=== PATIENT | male | born 1940 | race Caucasian/White ===

== ENCOUNTER 2020-10-06 07:41 | Day surgery (SDC) | payer OTHER ==
[2020-10-03 16:20] LABS: Absolute Lymphocytes (CBC) 1.9 K/uL (0.7-4.9); Basophils % 0.8 % (0-1.3); Lymphocytes % 24.9 % (15.3-44.8); MPV 8.6 fL (7.6-11.3)
[2020-10-03 16:22] LABS: Protime INR 1.21
[2020-10-03 16:26] LABS: Potassium 4.6 mmol/L (3.5-5.1)
--- NOTE | 2020-10-03 16:47 | RAD REPORT ---
EXAM DESCRIPTION: RAD - Chest Pa And Lat (2 Views) - 10/03/2020 4:24 pm CLINICAL HISTORY: left heart cath, preoperative examination COMPARISON: Two view chest October 2015 TECHNIQUE: Frontal and lateral views of the chest were obtained. FINDINGS: The lungs are clear of a focal mass or infiltrate. Chronic interstitial lung pattern matc hes comparison. Heart size is normal and central vasculature is within normal limits. No pleural eff usion or pneumothorax seen. No acute bony finding noted. No aortic abnormality. IMPRESSION: No acute cardiopulmonary process. No significant change from comparison study.
[2020-10-06] MEDS ORDERED: ATROPINE SULF 1 MG/10 ML SYR IV ONE (08:20)
[2020-10-06] MEDS ORDERED: MIDAZOLAM HCL 2 MG/2 ML INJ ONE (08:20)
[2020-10-06] MEDS ORDERED: FENTANYL CITR 100 MCG/2 ML ONE (08:20)
[2020-10-06] MEDS ORDERED: NA CHLORIDE 0.9% 0 ML ONE (08:20)
[2020-10-06] MEDS ORDERED: HEPA 1000U/500MLS 1,000 UNIT/500 ML BAG IV ONE (08:30)
[2020-10-06 09:12] VITALS: TEMP 96.7
[2020-10-06 10:46] VITALS: BP 132/66; O2SAT 100
--- NOTE | 2020-10-06 19:59 | OP ---
Date of Procedure: 10/06/2020 Surgeon: Edgar Caldwell MD Printed Circuit Board Panels Developer: Sherly Xie. Procedure: Left heart catheterization, selective coronary arteriogram. Indication: Abnormal stress test. Description Of Procedure: Mr. 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 A 6-Serbian sheath introduced in the right common femoral artery using the Seldinger technique and 10 cc of Xylocaine. A JL4 catheter and JR4 catheter were used to cannulate the left main and right main respectively. He had a normal left main and normal circumflex, had about a 20% to 30% proximal to mid LAD stenosis. RCA was normal. He was right dominant. The patient tolerated the procedure we ll. There were no complications. Blood Loss: 5 cc. Total Conscious Sedation: 45 minutes. Postoperative Diagnosis: Abnormal stress test, mild coronary artery disease. Plan: Plan is for medical therapy. The patient can go home today after 2 hours of bedrest. He had an Angio-Seal used to close the case. I will see him in the office in next 2 weeks. Continue present regimen. SARAH/YVETTE Voice ID: [id number] Report ID: [id number]
== END 2020-10-06 11:00 | disposition home or self-care (01) ==
LOC: CCL 07:41
DX: I25.10 Atherosclerotic heart disease of native coronary artery without angina pectoris (principal); E78.5 Hyperlipidemia, unspecified; Z20.822 Contact with and (suspected) exposure to COVID-19
CPT/HCPCS: 85025; 80048; 36415; 85610; 85730; 71046; 93454; U0003; C1893; C1760; J2250; J3010; J1644; J0583

== ENCOUNTER 2024-07-22 19:19 | Inpatient (IN) | payer OTHER ==
--- NOTE | 2024-07-22 20:04 | RAD REPORT ---
EXAMINATION: CT HEAD WITHOUT CONTRAST CT CERVICAL SPINE WITHOUT CONTRAST CLINICAL INDICATION: Male, 83 years old. fall and head injury TECHNIQUE: Axial CT images from the skull base to the vertex without intravenous contrast. Axial CT i mages through the cervical spine were obtained without intravenous contrast. Sagittal and coronal reformatted images were created from the data set. Coronal and sagittal reformatted images were creat ed from the data set. One or more of the following dose reduction techniques were used: Automated exposure control, adjustment of the mA and/or kV according to patient size, and/or iterative reconstr uction. Unless otherwise specified, incidental findings do not require dedicated imaging follow-up. [id number]. COMPARISON: No prior exam. FINDINGS: Head: INTRACRANIAL: No acute intracranial hemorrhage. Ventriculomegaly out of proportion to the degree of c erebral atrophy Patchy areas of white matter hypoattenuation in the right basal ganglia. There is either a dilated perivascular space or remote right basal ganglia/subinsular infarct. Mild to moderat e bilateral chronic small vessel ischemic changes. VASCULATURE: No visualized abnormalities in the arteries or dural venous sinuses. SCALP/SKULL: No significant soft tissue or osseous abnormalities. SINUSES: The visualized paranasal sinuses and mastoid air cells are predominantly clear. Cervical spine: ALIGNMENT: Loss of the normal cervical lordosis. BONE: Vertebral body heights are maintained. No aggressive osseous lesions. DEGENERATIVE CHANGES: Multilevel cervical spondylosis with varying degrees of neural foraminal narrow ing. Neural foraminal narrowing ranges from moderate to severe bilaterally at C3-4, C4-5, C5-6, and C6-7. SOFT TISSUE: No significant abnormalities in the soft tissue of the neck. The visualized lung apices are clear. IMPRESSION: 1. No acute intracranial hemorrhage or skull fracture. Ventriculomegaly out of proportion to the degr ee of cerebral atrophy. Normal pressure hydrocephalus is a consideration in the appropriate clinical setting. In addition, age-indeterminate right basal ganglia lacunar infarcts. 2. No acute fracture or traumatic malalignment of the cervical spine.
[2024-07-22 21:11] LABS: Absolute Basophils 0.1 K/uL (0-0.5); Absolute Eosinophils 0.1 K/uL (0-0.5); Absolute Lymphocytes (CBC) 1.3 K/uL (0.7-4.9); Absolute Neutrophil 8.8 K/uL (1.8-8.0); Basophils % 1.1 % (0-1.3); Eosinophils % 0.5 % (0-4.4); Hemoglobin 13.2 g/dL (13.6-17.9); MCHC 33.1 g/dL (32.0-36.0); MCV 90.8 fL (80-100); MPV 7.7 fL (7.6-11.3); Monocytes % 8.5 % (3.3-12.3); Neutrophils % 77.9 % (41.7-73.7); Nucleated Red Blood Cells % 0.1 % (0-0); Platelets 299 thou/uL (152-406); Red Cell Distribution Width 13.9 % (12.1-15.2)
[2024-07-22 21:26] LABS: Protime INR 1.43
[2024-07-22 21:39] LABS: ALT/SGPT 15 U/L (16-61); AST/SGOT 17 U/L (15-37); Albumin/Globulin Ratio 0.8 (1.1-1.8); Alkaline Phosphatase 131 U/L (45-117); Anion Gap 4.9 mEq/L (5.0-15.0); BUN Blood Urea Nitrogen 34 mg/dL (7-18); Bicarbonate 29 mEq/L (21-32); Bilirubin Total 0.3 mg/dL (0.2-1.0); Glomerular Filtration Rate 58 ml/min (=/>90); Glucose Level 96 mg/dL (74-106); Magnesium 2.1 mg/dL (1.6-2.4); NT PRO-BNP 389 pg/mL (<450); Potassium 3.9 mEq/L (3.5-5.1); Sodium Level 143 mEq/L (136-145); Troponin High Sensitivity 19.9 pg/mL (<58.9)
[2024-07-22 21:41] LABS: Bilirubin Direct < 0.2 mg/dL (0-0.2); Bilirubin Indirect, Calculated 0.1 mg/dL (0.2-0.8)
--- NOTE | 2024-07-22 21:43 | EDPHYS ---
Physician Documentation [facility] Name: Pierre Laughlin Age: 83 yrs Sex: Male : 1940 Arrival Date: 07/22/2024 Time: 19:19 Bed 5 Private MD: ED Physician Aurelio Eli HPI: 07/22 19:22 This 83 yrs old Male presents to ER via Unassigned with complaints of Closed sp4 Head Injury-Adult. 22:14 Patient is a very pleasant 83-year-old male who is patient of Dr. Kaiser who has sp4 presented with acute fall at home associated with multiple frequent falls at home. Patient's states that patient's gait has been deteriorating lately he has difficult time ambulating and this is contributing to multiple falls at home. Patient specifically fell and hit the back of his head on the concrete today outside of his house. . Historical: - Allergies: 19:23 No Known Allergies; ss - PMHx: 19:23 Alzheimers; ss - Immunization history:: Adult Immunizations unknown. - Infectious Disease History:: Denies. - Social history:: Smoking status: Patient denies any tobacco usage or history of. - Family history:: not pertinent. ROS: 22:14 Constitutional: Negative for fever, chills, and weight loss, positive for acute fall at sp4 home, positive for multiple falls, positive for acute head injury positive for poor coordination 22:14 All other systems are negative, Exam: 21:43 ECG was reviewed by the Attending Physician. EKG 2106 normal sinus rhythm, left sp4 ventricular hypertrophy. 22:14 Constitutional: This is a well developed, well nourished patient who is awake, alert, sp4 and in no acute distress. Head/Face: Normocephalic, atraumatic. Eyes: Pupils equal round and reactive to light, extra-ocular motions intact. Lids and lashes normal. Conjunctiva and sclera are not injected. Cornea within normal limits. Periorbital areas with no swelling, redness, or edema. ENT: Nares patent. No nasal discharge, no septal abnormalities noted. Tympanic membranes are normal and external auditory canals are clear. Oropharynx with no redness, swelling, or masses, exudates, or evidence of obstruction, uvula midline. Mucous membranes moist. Neck: Trachea midline, no thyromegaly or masses palpated, and no cervical lymphadenopathy. Supple, full range of motion without nuchal rigidity, or vertebral point tenderness. Chest/axilla: Normal chest wall appearance and motion. Nontender with no deformity. No lesions are appreciated. Cardiovascular: Regular rate and rhythm with a normal S1 and S2. No gallops, murmurs, or rubs. Normal PMI, no JVD. No pulse deficits. Respiratory: Lungs have equal breath sounds bilaterally, clear to auscultation and percussion. No rales, rhonchi or wheezes noted. No increased work of breathing, no retractions or nasal flaring. Abdomen/GI: Soft, with normal bowel sounds. No distension or tympany. No guarding or rebound. No evidence of tenderness throughout. Back: No spinal tenderness. No costovertebral tenderness. Skin: Warm, dry with normal turgor. Normal color with no rashes, no lesions, and no evidence of cellulitis. MS/ Extremity: Pulses equal, no cyanosis. Neurovascular intact. Full, normal range of motion. Neuro: Awake and alert, GCS 15, oriented to person, place, time, and situation. Cranial nerves II-XII grossly intact. Motor strength 5/5 in all extremities. Sensory grossly intact. Psych: Awake, alert, with orientation to person, place and time. Behavior, mood, and affect are within normal limits Vital Signs: 19:21 BP 148 / 78; Pulse 63; Resp 14; Temp 97.6(TE); Pulse Ox 97% on R/A; Weight 81.65 kg; Height 5 ft. 9 in. ; Pain 2/10; 21:00 BP 155 / 76; Pulse 62; Resp 18; Temp 97.6; Pulse Ox 97% ; Pain 2/10; bm8 23:00 BP 151 / 74; Pulse 64; Resp 17; Temp 97.9; Pulse Ox 98% ; Pain 0/10; bm8 07/23 00:46 BP 159 / 74; Pulse 58; Resp 16; Temp 97.8; Pulse Ox 98% ; Pain 0/10; bm8 07/22 19:21 Body Mass Index 26.58 (81.65 kg, 175.26 cm) 07/22 19:21 Pain Scale: Adult 21:00 Pain Scale: Adult bm8 23:00 Pain Scale: Adult bm8 07/23 00:46 Pain Scale: Adult bm8 NIH Stroke Scale Scores: 07/22 22:14 NIHSS Score: 0 sp4 Chastity Coma Score: 19:21 Eye Response: spontaneous(4). Motor Response: obeys commands(6). Verbal Response: ss oriented(5). Total: 15. 21:00 Eye Response: spontaneous(4). Motor Response: obeys commands(6). Verbal Response: bm8 oriented(5). Total: 15. 21:43 Eye Response: spontaneous(4). Motor Response: obeys commands(6). Verbal Response: sp4 oriented(5). Total: 15. 22:17 Eye Response: spontaneous(4). Motor Response: obeys commands(6). Verbal Response: sp4 oriented(5). Total: 15. 23:00 Eye Response: spontaneous(4). Motor Response: obeys commands(6). Verbal Response: bm8 oriented(5). Total: 15. 07/23 00:46 Eye Response: spontaneous(4). Motor Response: obeys commands(6). Verbal Response: bm8 oriented(5). Total: 15. MDM: 07/22 20:19 ED course: EXAMINATION: CT HEAD WITHOUT CONTRAST CT CERVICAL SPINE WITHOUT CONTRAST sp4 CLINICAL INDICATION: Male, 83 years old. fall and head injury TECHNIQUE: Axial CT images from the skull base to the vertex without intravenous contrast. Axial CT images through the cervical spine were obtained without intravenous contrast. Sagittal and coronal reformatted images were created from the data set. Coronal and sagittal reformatted images were created from the data set. One or more of the following dose reduction techniques were used: Automated exposure control, adjustment of the mA and/or kV according to patient size, and/or iterative reconstruction. Unless otherwise specified, incidental findings do not require dedicated imaging follow-up. [id number]. COMPARISON: No prior exam. FINDINGS: Head: INTRACRANIAL: No acute intracranial hemorrhage. Ventriculomegaly out of proportion to the degree of cerebral atrophy Patchy areas of white matter hypoattenuation in the right basal ganglia. There is either a dilated perivascular space or remote right basal ganglia/subinsular infarct. Mild to moderate bilateral chronic small vessel ischemic changes. VASCULATURE: No visualized abnormalities in the arteries or dural venous sinuses. SCALP/SKULL: No significant soft tissue or osseous abnormalities. SINUSES: The visualized paranasal sinuses and mastoid air cells are predominantly clear. Cervical spine: ALIGNMENT: Loss of the normal cervical lordosis. BONE: Vertebral body heights are maintained. No aggressive osseous lesions. DEGENERATIVE CHANGES: Multilevel cervical spondylosis with varying degrees of neural foraminal narrowing. Neural foraminal narrowing ranges from moderate to severe bilaterally at C3-4, C4-5, C5- 6, and C6-7. SOFT TISSUE: No significant abnormalities in the soft tissue of the neck. The visualized lung apices are clear. IMPRESSION: 1. No acute intracranial hemorrhage or skull fracture. Ventriculomegaly out of proportion to the degree of cerebral atrophy. Normal pressure hydrocephalus is a consideration in the appropriate clinical setting. In addition, age-indeterminate right basal ganglia lacunar infarcts. 2. No acute fracture or traumatic malalignment of the cervical spine. . 20:27 ED course: CT - IMPRESSION: 1. No acute intracranial hemorrhage or skull fracture. sp4 Ventriculomegaly out of proportion to the degree of cerebral atrophy. Normal pressure hydrocephalus is a consideration in the appropriate clinical setting. In addition, age-indeterminate right basal ganglia lacunar infarcts. 2. No acute fracture or traumatic malalignment of the cervical spine. . 21:35 Medical Screening Exam initiated sp4 22:14 ED course: EXAM: Chest Single View HISTORY: gen weakness COMPARISON: None. FINDINGS: sp4 LUNGS/PLEURA: The lungs are clear. No pleural effusions or pneumothorax. No pulmonary edema. MEDIASTINUM: The mediastinal silhouette is within normal limits. CARDIAC: The cardiac silhouette is within normal limits. UPPER ABDOMEN: No significant abnormality. BONES: No acute abnormality. LINES/TUBES/OTHER: N/A IMPRESSION: No evidence of acute cardiopulmonary disease. . 22:17 Differential diagnosis: Contusion of Hematoma on cerebral contusion. Differential sp4 diagnosis: Laceration of Concussion. Data reviewed: vital signs, nurses notes. 22:31 Differential diagnosis: Intracranial bleed- subdural. Consideration of sp4 Admission/Observation Patient was admitted/placed on observation. Escalation of care including admission/observation considered. Management of patient was discussed with the following: Hospitalist: Emily VILLARREAL . Plastics Factory Worker: Louann VILLARREAL . ED course: Patient was discussed with Dr. Lew and we will go ahead and admit patient for evaluation of ventriculomegaly possible normal pressure hydrocephalus. Dr. Lew states he will proceed with MRI in the AM. 07/23 00:34 ED course: COMPARISON: None. TECHNIQUE: CT of the thoracic and lumbar spine was sp4 performed without contrast. Axial, sagittal, and coronal reconstructions were created and sent to PACS. This exam was performed according to our departmental dose-optimization program which includes use of Automated Exposure Control, adjustment of the mA and/or kV according to patient size and/or use of iterative reconstruction technique. FINDINGS: No acute osseous abnormality identified. Chronic mild humeral body height loss of the T12 vertebral body with no bony retropulsion. Degenerative sclerosis along the anterior endplates at T6-7. Schmorl's node along the inferior endplates of the L2 and L3 vertebral bodies. Vertebral body alignment is maintained. No significant central canal or neuroforaminal narrowing throughout the thoracic spine. Degenerative changes in the lumbar spine, with mild central canal and neuroforaminal narrowing at L3-4 and L4-5. 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 Demineralized appearance of the bones. Paraspinal soft tissues: No significant abnormality is visualized. IMPRESSION: 1. No acute osseous abnormality identified in the thoracic or lumbar spine. 2. Demineralized appearance of the bones. Chronic mild T12 compression deformity. 3. Mild disc degeneration in the lumbar spine, with mild central canal and neuroforaminal narrowing at L3-4 and L4-5. 4. MRI is more sensitive for soft tissue evaluation and can be obtained if necessary. . 07/22 20:42 Order name: Basic Metabolic Panel; Complete Time: 22:12 sp4 07/22 20:42 Order name: CBC with Diff; Complete Time: 21:34 sp4 07/22 20:42 Order name: LFT's; Complete Time: 22:12 sp4 07/22 20:42 Order name: Magnesium; Complete Time: 22:12 sp4 07/22 20:42 Order name: NT PRO-BNP; Complete Time: 22:12 sp4 07/22 20:42 Order name: PT-INR; Complete Time: 21:34 sp4 07/22 20:42 Order name: Troponin HS; Complete Time: 22:12 sp4 07/22 20:43 Order name: Urinalysis W/Microscopic; Complete Time: 00:31 sp4 07/22 21:07 Order name: C-Reactive Protein; Complete Time: 22:12 EDMS 07/22 21:07 Order name: T4 Free; Complete Time: 22:12 EDMS 07/22 21:07 Order name: Thyroid Stimulating Hormone; Complete Time: 22:12 EDMS 07/22 22:43 Order name: Lactate w/ 2H reflex if indic.; Complete Time: 08:33 EDMS 07/22 22:43 Order name: Magnesium; Complete Time: 08:33 EDMS 07/22 22:43 Order name: Phosphorus; Complete Time: 08:33 EDMS 07/22 22:43 Order name: Urinalysis w/ reflexes EDMS 07/22 22:43 Order name: Basic Metabolic Panel EDMS 07/22 22:43 Order name: Basic Metabolic Panel; Complete Time: 08:33 EDMS 07/22 22:43 Order name: CBC with Automated Diff EDMS 07/22 22:43 Order name: CBC with Automated Diff; Complete Time: 08:33 EDMS 07/23 08:19 Order name: Glucose, Ancillary Testing; Complete Time: 08:33 EDMS 07/23 12:18 Order name: Glucose, Ancillary Testing EDMS 07/22 19:22 Order name: CT Head C Spine; Complete Time: 21:34 sp4 07/22 20:42 Order name: XRAY Chest (1 view); Complete Time: 22:12 sp4 07/22 20:42 Order name: Pelvis XRAY; Complete Time: 22:12 sp4 07/22 22:19 Order name: CT Thoracic Spine Wo Cont sp4 07/22 22:19 Order name: CT Lumbar Spine Wo Con sp4 07/23 15:33 Order name: MRI EDMS 07/22 20:42 Order name: Cardiac monitoring; Complete Time: 21:13 sp4 07/22 20:42 Order name: EKG - Nurse/Tech; Complete Time: 21:13 sp4 07/22 20:42 Order name: IV Saline Lock; Complete Time: 21:13 sp4 07/22 20:42 Order name: Labs collected and sent; Complete Time: 21:13 sp4 07/22 20:42 Order name: O2 Per Protocol; Complete Time: 21:40 sp4 07/22 20:42 Order name: O2 Sat Monitoring; Complete Time: 21:40 sp4 EC/02 21:06 Rate is 64 beats/min. Rhythm is regular, Normal Sinus Rhythm. QRS [place] is Normal. [place] sp4 interval is normal. QRS interval is normal. QT interval is normal. No Q waves. T waves are Inverted in leads V4, V5, V6. No ST changes noted. Clinical impression: No evidence of ischemia. Interpreted by me. Reviewed by me. Administered Medications: No medications were administered Disposition Summary: 07/22/24 21:42 Hospitalization Ordered Notes: Hospitalization Status: Inpatient Admission sp4 Provider: Prince blas Diaz Condition: Stable sp4 Problem: new sp4 Symptoms: are unchanged sp4 Bed/Room Type: Standard sp4 Location: Telemetry/MedSurg (Inpatient)(07/23/24 14:55) ll1 Room Assignment: [facility](07/23/24 15:32) [facility] Diagnosis - Ventriculomegaly, Frequent Falls, Generalized weakness, Acute fall at home, sp4 Closed Head Injury, Impaired Coordination Forms: - Medication Reconciliation Form sp4 - SBAR form sp4 - Leadership Thank You Letter sp4 NIH Stroke Scale - NIH Stroke Score Date: 07/22/2024 Time: 22:14 Total Score = 0 10. Dysarthria (speech clarity - read or repeat words) - 0(Normal) 11. Extinction and Inattention (visual/tactile/auditory/spatial/personal) - 0(No abnormality) 1a. Level of Consciousness (LOC) - 0(Alert) 1b. Level of Consciousness (LOC) (Month \T\ Age) - 0(Both) 1c. LOC Commands (Open \T\ Closes Eyes/Real Estate Administrative Assistant) - 0(Both) 2. Best Gaze (Lateral Gaze Paresis) - 0(Normal) 3. Visual Field Loss - 0(No visual loss) 4. Facial Palsy - 0(Normal) 5a. Left Arm: Motor (10-second hold) - 0(No drift) 5b. Right Arm: Motor (10-second hold) - 0(No drift) 6a. Left Leg: Motor (5-second hold - always test supine) - 0(No drift) 6b. Right Leg: Motor (5-second hold - always test supine) - 0(No drift) 7. Limb Ataxia (finger/nose \T\ heel/gatica - test with eyes open) - 0(Absent) 8. Sensory Loss (pinprick arms/legs/face) - 0(Normal) 9. Best Language: Aphasia (description/naming/reading) - 0(No aphasia) Initials: sp4 Signatures: Dispatcher [employer] EDMS Angelica Sauceda, RN RN ss Kiran Meehan, SPOON MAKER-C SPOON MAKER-Cla1 Satya Sykes RN RN ll1 Aurelio Eli MD MD sp4 Humza Winter, RN RN bm8 Corrections: (The following items were deleted from the chart) 19:23 19:23 Head C Spine MPR Wo Con+CT.RAD.BRZ ordered. EDMS EDMS 20:42 20:42 BASIC METABOLIC PANEL+C.LAB.BRZ ordered. EDMS EDMS 20:42 20:42 CBC+H.LAB.BRZ ordered. EDMS EDMS 20:42 20:42 HEPATIC FUNCTION+C.LAB.BRZ ordered. EDMS EDMS 20:42 20:42 MAGNESIUM+C.LAB.BRZ ordered. EDMS EDMS 20:42 20:42 PROBNP+C.LAB.BRZ ordered. EDMS EDMS 20:42 20:42 PROTIME (+INR)+COAG.LAB.BRZ ordered. EDMS EDMS 20:42 20:42 Troponin High Sensitivity+C.LAB.BRZ ordered. EDMS EDMS 20:42 20:42 Chest Single View+RAD.RAD.BRZ ordered. EDMS EDMS 21:07 20:45 THYROID STIMULAT HORMONE+C.LAB.BRZ ordered. EDMS EDMS 21:07 20:45 T4 FREE+C.LAB.BRZ ordered. EDMS EDMS 21:07 20:45 C-REACTIVE PROTEIN+C.LAB.BRZ ordered. EDMS EDMS 22:46 22:19 C Spine Wo Con+CT.RAD.BRZ ordered. EDMS EDMS 23:21 21:42 Telemetry/MedSurg (Inpatient) sp4 ss 23:21 21:42 sp4 07/23 14:55 07/22 23:21 BR ER HOLD ll1 07/23 14:55 07/22 23:21 [facility] ll1 07/23 15:32 14:[address] [place], [place] [id number]
--- NOTE | 2024-07-22 21:43 | ER ---
Nurse's Notes [facility] Name: Pierre Laughlin Age: 83 yrs Sex: Male : 1940 Arrival Date: 07/22/2024 Time: 19:19 Bed 5 Private MD: Diagnosis: Ventriculomegaly, Frequent Falls, Generalized weakness, Acute fall at home, Closed Head Injury, Impaired Coordination Presentation: 07/22 19:21 Chief complaint: EMS states: fell from standing onto concrete. Pt reports he hit the back of his head. Pain is reportedly 2/10. No obvious injury noted. Coronavirus screen: Client denies travel out of the [place] in the last 14 days. Ebola Screen: Patient denies exposure to infectious person. Patient denies travel to an Ebola-affected area in the 21 days before illness onset. Mechanism of Injury: resulted from a fall, from a standing position. Risk considerations:. Initial Sepsis Screen: Does the patient meet any 2 criteria? No. Patient's initial sepsis screen is negative. Does the patient have a suspected source of infection? No. Patient's initial sepsis screen is negative. Risk Assessment: Do you want to hurt yourself or someone else? Patient reports no desire to harm self or others. 19:21 Method Of Arrival: EMS: [facility] 19:21 Acuity: CARLEY 3 ss 19:21 Onset of symptoms is unknown. bm8 19:26 Care prior to arrival: Glucose check: 88. ss Triage Assessment: 19:21 General: Appears in no apparent distress. comfortable. General: Behavior is calm, bm8 cooperative, appropriate for age. Pain: Complains of pain in scalp. Neuro: No deficits noted. Level of Consciousness is awake, alert, obeys commands, Oriented to person, place, time, situation, Appropriate for age Reports headache occipital area. Historical: - Allergies: 19:23 No Known Allergies; ss - PMHx: 19:23 Alzheimers; ss - Immunization history:: Adult Immunizations unknown. - Infectious Disease History:: Denies. - Social history:: Smoking status: Patient denies any tobacco usage or history of. - Family history:: not pertinent. Screenin:24 Abuse screen: Denies threats or abuse. Denies injuries from another. Nutritional ss screening: No deficits noted. Tuberculosis screening: Never had TB. 07/23 00:46 [facility] ED Fall Risk Assessment (Adult) History of falling in the last 3 months, bm8 including since admission Yes- fall prone (multiple falls) (3 pts) Confusion or Disorientation No (0 pts) Intoxicated or Sedated No (0 pts) Impaired Gait Yes (1 pt) Mobility Assist Device Used No (0 pt) Altered Elimination No (0 pt) Score/Fall Risk Level 3 or more points = High Risk Oriented to surroundings, Maintained a safe environment, Educated pt \T\ family on fall prevention, incl call for assistance when getting out of bed, Assessed \T\ reinforced patient's understanding of fall precautions, Hourly rounding (assess needs \T\ fall precautionary measures) done, Used ambulatory aids as needed (educated on \T\ assisted with), Used gait belt as appropriate Implemented a Fall Risk Plan of Care. Assessment: 07/22 19:24 General: Appears in no apparent distress. comfortable, Behavior is calm, cooperative, ss Denies fever, feeling ill. Pain: Complains of pain in Back of head Pain currently is 2 out of 10 on a pain scale. Quality of pain is described as aching, tender, Is continuous. Neuro: Level of Consciousness is awake, alert, obeys commands, Oriented to person, place, time, situation, Sheet Catcher are equal bilaterally Moves all extremities. Full function Gait is steady, Speech is normal, Facial symmetry appears normal, Pupils are PERRLA, Denies blurred vision dizziness. Respiratory: Airway is patent Respiratory effort is even, unlabored, Respiratory pattern is regular, symmetrical. GI: Patient currently denies diarrhea, nausea, vomiting. EENT: Oral mucosa is moist. Derm: Skin is intact, is healthy with good turgor, Skin is pink, warm \T\ dry. normal. 19:39 Reassessment: Additional warm blankets given per request. Pt to CT at this time VIA ss stretcher. 2 family members remain in room. 21:00 Reassessment: Patient appears in no apparent distress at this time. Patient and/or bm8 family updated on plan of care and expected duration. Pain level reassessed. Patient is alert, oriented x 3, equal unlabored respirations, skin warm/dry/pink. Patient denies pain at this time. 23:00 Reassessment: Patient appears in no apparent distress at this time. No changes from bm8 previously documented assessment. Patient and/or family updated on plan of care and expected duration. Pain level reassessed. Patient is alert, oriented x 3, equal unlabored respirations, skin warm/dry/pink. Patient denies pain at this time. Patient states symptoms have improved. 07/23 00:46 General: Appears in no apparent distress. comfortable, obese, well groomed, well bm8 developed, well nourished, Behavior is calm, cooperative, appropriate for age. Pain: Denies pain. Neuro: Level of Consciousness is awake, alert, obeys commands, Oriented to person, place, time, situation, Appropriate for age Sheet Catcher are equal bilaterally Moves all extremities. Full function Gait is shuffling, Facial symmetry appears normal. Cardiovascular: No deficits noted. Denies chest pain, Capillary refill < 3 seconds in bilateral fingers Patient's skin is warm and dry. Respiratory: Airway is patent Respiratory effort is even, unlabored, Respiratory pattern is regular, symmetrical. GI: No signs and/or symptoms were reported involving the gastrointestinal system. : No signs and/or symptoms were reported regarding the genitourinary system. Musculoskeletal: No signs and/or symptoms reported regarding the musculoskeletal system. Reports weakness in generalized weakness. Vital Signs: 07/22 19:21 BP 148 / 78; Pulse 63; Resp 14; Temp 97.6(TE); Pulse Ox 97% on R/A; Weight 81.65 kg; ss Height 5 ft. 9 in. ; Pain 2/10; 21:00 BP 155 / 76; Pulse 62; Resp 18; Temp 97.6; Pulse Ox 97% ; Pain 2/10; bm8 23:00 BP 151 / 74; Pulse 64; Resp 17; Temp 97.9; Pulse Ox 98% ; Pain 0/10; bm8 07/23 00:46 BP 159 / 74; Pulse 58; Resp 16; Temp 97.8; Pulse Ox 98% ; Pain 0/10; bm8 07/22 19:21 Body Mass Index 26.58 (81.65 kg, 175.26 cm) ss 07/22 19:21 Pain Scale: Adult ss 21:00 Pain Scale: Adult bm8 23:00 Pain Scale: Adult bm8 07/23 00:46 Pain Scale: Adult bm8 [place] Coma Score: 07/22 19:21 Eye Response: spontaneous(4). Motor Response: obeys commands(6). Verbal Response: ss oriented(5). Total: 15. 21:00 Eye Response: spontaneous(4). Motor Response: obeys commands(6). Verbal Response: bm8 oriented(5). Total: 15. 21:43 Eye Response: spontaneous(4). Motor Response: obeys commands(6). Verbal Response: sp4 oriented(5). Total: 15. 22:17 Eye Response: spontaneous(4). Motor Response: obeys commands(6). Verbal Response: sp4 oriented(5). Total: 15. 23:00 Eye Response: spontaneous(4). Motor Response: obeys commands(6). Verbal Response: bm8 oriented(5). Total: 15. 07/23 00:46 Eye Response: spontaneous(4). Motor Response: obeys commands(6). Verbal Response: bm8 oriented(5). Total: 15. NIH Stroke Scale Scores: 07/22 22:14 NIHSS Score: 0 sp4 ED Course: 19:21 Patient arrived in ED. ss 19:22 Aurelio Eli MD is Attending Physician. sp4 19:23 Triage completed. ss 19:23 Arm band placed on right wrist. ss 19:24 Patient has correct armband on for positive identification. Placed in gown. Bed in low ss position. Call light in reach. Side rails up X2. Pulse ox on. NIBP on. Warm blanket given. 19:44 CT Head C Spine In Process Unspecified. EDMS 21:12 Inserted saline lock: 22 gauge in right antecubital area, using aseptic technique. oe Blood collected. Flushed with 10 mL NS. 21:13 Basic Metabolic Panel Sent. oe 21:13 LFT's Sent. oe 21:13 Magnesium Sent. oe 21:13 NT PRO-BNP Sent. oe 21:13 PT-INR Sent. oe 21:13 Troponin HS Sent. oe 21:13 T4 Free Sent. oe 21:13 Thyroid Stimulating Hormone Sent. oe 21:14 C-Reactive Protein Sent. oe 21:40 MOON AMBRIZ, RN is Primary Nurse. dd2 21:40 Prince Diaz MD is Hospitalizing Provider. sp4 21:49 XRAY Chest (1 view) In Process Unspecified. EDMS 21:49 Pelvis XRAY In Process Unspecified. EDMS 22:39 Urinalysis W/Microscopic Sent. oe 22:46 CT Thoracic Spine Wo Cont In Process Unspecified. EDMS 22:46 CT Lumbar Spine Wo Con In Process Unspecified. EDMS 02/03 00:46 Provided Education on: need for admission. bm8 00:46 No provider procedures requiring assistance completed. Patient admitted, IV remains in bm8 place. Administered Medications: No medications were administered Medication: 07/22 19:24 VIS not applicable for this client. ss Outcome: 21:42 Decision to Hospitalize by Provider. sp4 07/23 00:46 Admitted to ER Hold. [facility]. bm8 Condition: stable Instructed on the need for admit, Demonstrated understanding of follow-up care, medications, 16:35 Patient left the ED. ko1 NIH Stroke Scale - NIH Stroke Score Date: 07/22/2024 Time: 22:14 Total Score = 0 10. Dysarthria (speech clarity - read or repeat words) - 0(Normal) 11. Extinction and Inattention (visual/tactile/auditory/spatial/personal) - 0(No abnormality) 1a. Level of Consciousness (LOC) - 0(Alert) 1b. Level of Consciousness (LOC) (Month \T\ Age) - 0(Both) 1c. LOC Commands (Open \T\ Closes Eyes/Chief Client Officer) - 0(Both) 2. Best Gaze (Lateral Gaze Paresis) - 0(Normal) 3. Visual Field Loss - 0(No visual loss) 4. Facial Palsy - 0(Normal) 5a. Left Arm: Motor (10-second hold) - 0(No drift) 5b. Right Arm: Motor (10-second hold) - 0(No drift) 6a. Left Leg: Motor (5-second hold - always test supine) - 0(No drift) 6b. Right Leg: Motor (5-second hold - always test supine) - 0(No drift) 7. Limb Ataxia (finger/nose \T\ heel/gatica - test with eyes open) - 0(Absent) 8. Sensory Loss (pinprick arms/legs/face) - 0(Normal) 9. Best Language: Aphasia (description/naming/reading) - 0(No aphasia) Initials: sp4 Signatures: Dispatcher [employer] EDAngelica Richard RN RN ss Jemal Russ Kathy, RN RN ko1 Aurelio Eli MD MD sp4 Humza Winter, RN RN bm8 MOON AMBRIZ, RN RN dd2
--- NOTE | 2024-07-22 21:52 | RAD REPORT ---
EXAM: Chest Single View HISTORY: gen weakness COMPARISON: None. FINDINGS: LUNGS/PLEURA: The lungs are clear. No pleural effusions or pneumothorax. No pulmonary edema. MEDIASTINUM: The mediastinal silhouette is within normal limits. CARDIAC: The cardiac silhouette is within normal limits. UPPER ABDOMEN: No significant abnormality. BONES: No acute abnormality. LINES/TUBES/OTHER: N/A IMPRESSION: No evidence of acute cardiopulmonary disease.
--- NOTE | 2024-07-22 21:52 | RAD REPORT ---
EXAMINATION: Pelvis CLINICAL INDICATION: Male, 83 years old. fall COMPARISON: No prior exam. FINDINGS: No acute fracture. No malalignment/dislocation. Degenerative changes are present at the sacroiliac joints. Mild bilateral acetabular degenerative blank nges. Other: Peripheral vascular calcifications. IMPRESSION: No acute osseous abnormality.
[2024-07-22] MEDS ORDERED: ACETAMINOPHEN 500 MG TAB PO PRN (22:39)
[2024-07-22] MEDS ORDERED: ONDANSETRON 4 MG/2 ML VIAL IV PRN (22:39)
--- NOTE | 2024-07-22 22:45 | P.HP ---
Certification for Inpatient Patient admitted to: Observation With expected LOS: <2 Midnights Practitioner: I am a practitioner with admitting privileges, knowledge of patient current condition, hospital course, and medical plan of care. Services: Services provided to patient in accordance with Admission requirements found in Title 42 Section 412.3 of the Code of Federal Regulations Patient History Date of Service: 07/22/24 Reason for admission: Abnormal gait History of Present Illness: Patient is a 83-year-old male with a past medical history of Alzhei song's dementia. Presented to the ER accompanied by and neighbor for evaluation of abnormal gait. states that patient has been having shuffling gait for the past few days. Additional symptoms including worsening confusion. Denies urinary incontinence but endorses bowel incontinence. No recent fall reported. CT head in the ER revealed ventriculomegaly concerning for normal pressure hydrocephalus. The ER has contacted neurology who agrees to consult tomorrow morning. During my evaluation, patient was alert and awake. provided most of the history. Allergies No Known Allergies Allergy (Verified 01/07/16 11:50) Home Medications: Docosahexaenoic Acid [Dha Algal-900] 300 mg PO DAILY 10/23/15 Docosahexanoic AC/Epa [Fish Oil 1,000 MG CAP] 1,000 mg PO BID 10/23/15 Vitamin E Acid Succinate [Vitamin E] 400 unit PO DAILY 10/23/15 Acetylcysteine [Nac] 500 mg PO DAILY 01/07/16 Ascorbic Acid [Vitamin C] 500 mg PO DAILY 01/07/16 Beta-Carotene [Beta Carotene] 12,500 unit PO DAILY 01/07/16 Biotin 500 mcg PO DAILY 01/07/16 Calcium Cit/Mgox/Vit D3/B6/Min [Calcium Citrate Plus Tablet] 1 each PO DAILY 01/07/16 Chromium Amino Acid Chelate [Chromium] 6,000 mcg PO DAILY 01/07/16 Lutein 10 mg PO DAILY 01/07/16 Lycopene 15 mg PO EVERY 3RD DAY 01/07/16 Magnesium Oxide [Magnesium] 250 mg PO DAILY 01/07/16 Niacin [Niacin ER] 1,000 mg PO DAILY 01/07/16 Potassium 99 mg PO DAILY 01/07/16 Ubidecarenone/Vitamin E Mixed [Fmp31-Qlg E 100 mg-10 Unit Sfg] 1 each PO DAILY 01/07/16 Vitamin B Complex [B Complex] 1 each PO DAILY 01/07/16 Ciprofloxacin HCl [Cipro 500 MG Tablet] 500 mg PO BID 04/28/16 Physical Examination - Physical Exam General: Alert, In no apparent distress HEENT: Atraumatic, Normocephalic Respiratory: Clear to auscultation bilaterally, Normal air movement Cardiovascular: No edema, Normal pulses, Regular rate/rhythm, Normal S1 S2 Neurological: Normal speech, Dementia - Studies Laboratory Data (last 24 hrs) 07/22/24 07/22/24 07/22/24 20:55 20:55 20:55 WBC 11.20 H Hgb 13.2 L Hct 40.0 Plt Count 299 PT 15.0 H INR 1.43 Sodium 143 Potassium 3.9 BUN 34 H Creatinine 1.24 Glucose 96 Magnesium 2.1 Total Bilirubin 0.3 AST 17 ALT 15 L Alkaline Phosphatase 131 H Assessment and Plan - Problems (Diagnosis) (1) Ataxia Current Visit: Yes Status: Acute (2) Alzheimer dementia Current Visit: Yes Status: Acute (3) Bilateral leg weakness Current Visit: Yes Status: Acute - Plan Assessment 83-year-old male brought in for evaluation of abnormal gait, worsening memory deficits and bladder incontinence. Patient usually ambulates unassisted and independently. Lately, he has been able unable to get out of chair. Patient reports bilateral lower extremity weakness. Associated symptoms include bowel incontinence Ventriculomegaly, suspecting NPH Bilateral lower extremity weakness Bowel incontinence Alzheimer dementia Plan: Will admit under observation with telemetry CT of thoracic and lumbar spine Obtain a formal brain brain and spine MRI Neurology has been consulted. Will hold off LP pending Neuro clearance Patient will also benefit from PT/OT before discharge Normal saline infusion Check electrolytes Patient is full code - Advance Directives Does patient have a Living Will: No Does patient have a Durable POA for Healthcare: No
[2024-07-22] MEDS: NA CHLORIDE 0.9% 1,000 ML IV SCH (23:00)
[2024-07-22 23:06] LABS: Renal Epithelial <5 /HPF (None Seen); Specific Gravity 1.018 (1.005-1.030); Sqamous Epithelial None Seen /HPF (None Seen); Urine Bacteria None Seen /HPF (<20); Urine Bilirubin NEGATIVE (Negative); Urine Blood Trace (Negative); Urine Clarity Turbid (Clear); Urine Color Colorless (Yellow); Urine Culture Reflex Order NOT NEEDED; Urine Glucose NEGATIVE (Negative); Urine Ketones NEGATIVE (Negative); Urine Micro Reflex YN NO BILL MICROSCOPIC; Urine Mucus Slight /HPF (None Seen); Urine Nitrite NEGATIVE (Negative); Urine Protein NEGATIVE (Negative); Urine Urobilinogen Normal (Normal); Urine WBC <5 /HPF (<5); Urine pH 7.5 (5.0-7.0)
--- NOTE | 2024-07-22 23:16 | RAD REPORT ---
EXAM DESCRIPTION: Spine Lumbar Wo Con (accession [id number]), Thoracic Spine W/o Cont (accession [id number]). RadLex: CT LUMBAR SPINE WITHOUT IV CONTRAST, CT THORACIC SPINE WITHOUT IV CONTRAST CLINICAL HISTORY: bilateral leg weakness. COMPARISON: None. TECHNIQUE: CT of the thoracic and lumbar spine was performed without contrast. Axial, sagittal, and coronal kenneth nstructions were created and sent to PACS. This exam was performed according to our departmental dose-optimization program which includes use of Automated Exposure Control, adjustment of the mA and/or kV according to patient size and/or use of iterative reconstruction technique. FINDINGS: No acute osseous abnormality identified. Chronic mild humeral body height loss of the T12 vertebral b genesis with no bony retropulsion. Degenerative sclerosis along the anterior endplates at T6-7. Schmorl's node along the inferior endplates of the L2 and L3 vertebral bodies. Vertebral body alignme nt is maintained. No significant central canal or neuroforaminal narrowing throughout the thoracic spine. Degenerative changes in the lumbar spine, with mild central canal and neuroforaminal narrowing at L3-4 and L4-5. 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 Demineralized appearance of the bones. Paraspinal soft tissues: No significant abnormality is visualized. IMPRESSION: 1. No acute osseous abnormality identified in the thoracic or lumbar spine. 2. Demineralized appearance of the bones. Chronic mild T12 compression deformity. 3. Mild disc degeneration in the lumbar spine, with mild central canal and neuroforaminal narrowing at L3-4 and L4-5. 4. MRI is more sensitive for soft tissue evaluation and can be obtained if necessary. Electronically signed by: Mallorie Miller MD 07/22/2024 11:12 PM [facility] Due to temporary technical issues with the PACS/[employer] reporting system, reports are being mag d by the in-house radiologist without review as a courtesy to ensure prompt reporting the interpreting radiologist is fully responsible for the content of the report. Transcribed Date/Time: 07/22/2024 11:16 PM
--- NOTE | 2024-07-22 23:17 | RAD REPORT ---
EXAM DESCRIPTION: Spine Lumbar Wo Con (accession [id number]), Thoracic Spine W/o Cont (accession [id number]). RadLex: CT LUMBAR SPINE WITHOUT IV CONTRAST, CT THORACIC SPINE WITHOUT IV CONTRAST CLINICAL HISTORY: bilateral leg weakness. COMPARISON: None. TECHNIQUE: CT of the thoracic and lumbar spine was performed without contrast. Axial, sagittal, and coronal kenneth nstructions were created and sent to PACS. This exam was performed according to our departmental dose-optimization program which includes use of Automated Exposure Control, adjustment of the mA and/or kV according to patient size and/or use of iterative reconstruction technique. FINDINGS: No acute osseous abnormality identified. Chronic mild humeral body height loss of the T12 vertebral b genesis with no bony retropulsion. Degenerative sclerosis along the anterior endplates at T6-7. Schmorl's node along the inferior endplates of the L2 and L3 vertebral bodies. Vertebral body alignme nt is maintained. No significant central canal or neuroforaminal narrowing throughout the thoracic spine. Degenerative changes in the lumbar spine, with mild central canal and neuroforaminal narrowing at L3-4 and L4-5. 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 Demineralized appearance of the bones. Paraspinal soft tissues: No significant abnormality is visualized. IMPRESSION: 1. No acute osseous abnormality identified in the thoracic or lumbar spine. 2. Demineralized appearance of the bones. Chronic mild T12 compression deformity. 3. Mild disc degeneration in the lumbar spine, with mild central canal and neuroforaminal narrowing at L3-4 and L4-5. 4. MRI is more sensitive for soft tissue evaluation and can be obtained if necessary. Electronically signed by: Mallorie Miller MD 07/22/2024 11:12 PM [facility] Due to temporary technical issues with the PACS/[employer] reporting system, reports are being mag d by the in-house radiologist without review as a courtesy to ensure prompt reporting the interpreting radiologist is fully responsible for the content of the report. Transcribed Date/Time: 07/22/2024 11:17 PM
[2024-07-23] MEDS ORDERED: NA CHLORIDE 0.9% 1,000 ML ONE ×2 (01:19→10:39)
[2024-07-23 05:40] LABS: Absolute Basophils 0.1 K/uL (0-0.5); Absolute Eosinophils 0.1 K/uL (0-0.5); Absolute Lymphocytes (CBC) 1.8 K/uL (0.7-4.9); Absolute Neutrophil 6.4 K/uL (1.8-8.0); Basophils % 0.8 % (0-1.3); Eosinophils % 1.1 % (0-4.4); Hematocrit 36.6 % (39.6-49.0); Hemoglobin 12.5 g/dL (13.6-17.9); Lymphocytes % 19.6 % (15.3-44.8); MCH 30.9 pg (27.0-35.0); MCHC 34.2 g/dL (32.0-36.0); MCV 90.5 fL (80-100); MPV 7.6 fL (7.6-11.3); Monocytes % 10.3 % (3.3-12.3); Neutrophils % 68.2 % (41.7-73.7); Nucleated Red Blood Cells % 0.1 % (0-0); Platelets 263 thou/uL (152-406); RBC Red Blood Cell Count 4.04 M/uL (4.33-5.43); Red Cell Distribution Width 13.8 % (12.1-15.2)
[2024-07-23 06:02] LABS: Anion Gap 5.5 mEq/L (5.0-15.0); Potassium 3.5 mEq/L (3.5-5.1)
[2024-07-23 06:03] LABS: Magnesium 2.1 mg/dL (1.6-2.4); Phosphorus 2.8 mg/dL (2.5-4.9)
[2024-07-23] MEDS: ENOXAPARIN 40 MG/0.4 ML SQ SCH (09:00)
[2024-07-23] MEDS ORDERED: ENOXAPARIN 40 MG/0.4 ML SQ ONE (10:40)
--- NOTE | 2024-07-23 12:38 | P.PN ---
Date of Service: 07/23/24 Subjective: No acute events overnight feels about the same reports shuffling gait, falls ROS: 10 point ROS as noted above, otherwise negative Physical exam GEN: Alert, oriented, NAD HEENT: Normal conjunctiva, sclera anicteric CV: Regular rate and rhythm, no edema Pulm: Nonlabored respirations on room air ABD: Soft, nontender, nondistended MSK: No joint tenderness Integumentary: No rashes Neuro: Normal speech, normal affect, oriented but forgets words periodically/takes some time to answer appropriately on occasion Vitals reviewed Assessment Ventriculomegaly, Eval for NPH Bilateral lower extremity weakness Bowel incontinence Alzheimer dementia Plan: Ventriculomegaly, Eval for NPH Bilateral lower extremity weakness Bowel incontinence Alzheimer dementia Case discussed with neurology Obtain MRI brain with and without-pending result Obtain PT consult Await input from neurology, discussed possible high-volume LP follow-up PT evaluation to determine if there is improvement in his shuffling gait/confusion Generally he is quite oriented, occasionally stumbles over some words or takes a minute to come up with an answer Time Spent Managing Pts Care (In Minutes): 35
--- NOTE | 2024-07-23 15:33 | RAD REPORT ---
EXAM: Brain W/Wo Cont CLINICAL INDICATION: 83 years Male Eval for NPH, shuffling gain, increase confusion. TECHNIQUE: Pre-contrast sagittal and axial T1-w, and axial T2-FLAIR, GRE, and diffusion-w sequences o f the brain with ADC maps. Post-contrast axial fat-saturated T2-w and T1-w, and sagittal volumetric T1-w images of the brain with axial and coronal reformations. Intravenous contrast material was admin istered for the examination.[id number] COMPARISON: 07/22/2024 FINDINGS: INTRACRANIAL: No acute infarct identified. No significant mass effect or midline shift. Ventriculome irasema again identified which is out of proportion to the degree of cerebral atrophy. This predominantly affects the lateral ventricles and to lesser extent the third ventricle. The fourth abdullahi tricle is normal. Periventricular T-2/flair hyperintense signal is present which is more suggestive of chronic small vessel ischemic changes rather than transependymal flow of CSF. The callosal angle i s approximately 110 degrees which is normal. The Mandujano index is estimated at 0.40 which is abnormal. Cerebral atrophy is moderate and age advanced. Right basal ganglia septated structure measuring 18 mm with fluid intensity and no enhancement is mos t consistent with a dilated perivascular space. Microcystic changes in the right basal ganglia and right mora radiata also favored to be related to dilated perivascular spaces. No solid enhancement. VASCULATURE: Normal signal voids in the larger intracranial arteries and dural venous sinuses. SINUSES: No significant paranasal sinus thickening.No mastoid effusions. BONE: The marrow signal pattern is within normal limits. IMPRESSION: No acute intracranial abnormality. No acute infarct. Ventriculomegaly out of proportion to the degree of cerebral atrophy. No specific imaging features on this exam to either confirm or exclude normal pressure hydrocephalus. Could consider neurology consultation and/or referral. CSF attenuation structures in the right basal ganglia and mora radiata favored to represent dilated perivascular spaces. No abnormal enhancement.
[2024-07-24 06:54] LABS: Hematocrit 36.4 % (39.6-49.0); Hemoglobin 12.1 g/dL (13.6-17.9); MCH 30.3 pg (27.0-35.0); MCHC 33.2 g/dL (32.0-36.0); MCV 91.2 fL (80-100); MPV 7.9 fL (7.6-11.3); Platelets 264 thou/uL (152-406); RBC Red Blood Cell Count 3.99 M/uL (4.33-5.43); Red Cell Distribution Width 13.9 % (12.1-15.2)
[2024-07-24 07:16] LABS: Anion Gap 3.7 mEq/L (5.0-15.0); Potassium 3.7 mEq/L (3.5-5.1)
[2024-07-24] MEDS: POTASSIUM 25 MEQ EFFERV TAB PO ONE (07:42)
--- NOTE | 2024-07-24 12:16 | EKG ---
Test Date: 2024-07-22 Test Time: 21:06:01 Nuclear Equipment Test Engineer: DEDE MEASUREMENT RESULTS: Intervals: Rate: 64 CT: 130 QRSD: 88 QT: 436 QTc: 449 [place]: P: 71 CT: 130 QRS: 62 T: 187 INTERPRETIVE STATEMENTS: Normal sinus rhythm Left ventricular hypertrophy with repolarization abnormality Abnormal ECG Compared to ECG 10/23/2015 15:43:13 Sinus bradycardia no longer present Incomplete right bundle-branch block no longer present Electronically Signed On 07-24-24 12:13:33 MEETING COORDINATOR by Gilmer Dean
--- NOTE | 2024-07-24 13:01 | P.PN ---
Date of Service: 07/24/24 Subjective: Awake and conversing well at the bedside reports, Edward walks twice a week Lumbar puncture tomorrow ROS: 10 point ROS as noted above, otherwise negative Physical exam GEN: Alert and oriented x3, NAD HEENT: Normal conjunctiva, sclera anicteric CV: NSR, S1 S2 present, no edema Pulm: Nonlabored breathing, on room air ABD: Soft and benign on palpation, nontender, ND/NT Integumentary: No rashes Neuro: Normal speech, normal affect, oriented but forgets words periodically/takes some time to answer appropriately on occasion Vitals reviewed Assessment Ventriculomegaly, Eval for NPH Bilateral lower extremity weakness Bowel incontinence Alzheimer dementia Plan: Ventriculomegaly, Eval for NPH Bilateral lower extremity weakness Bowel incontinence Alzheimer dementia -Case discussed with neurology -Obtain MRI brain with and without- "No acute intracranial abnormality. No acute infarct. Ventriculomegaly out of proportion to the degree of cerebral atrophy. No specific imaging features on this exam to either confirm or exclude normal pressure hydrocephalus. Could consider neurology consultation and/or referral. CSF attenuation structures in the right basal ganglia and mora radiata favored to represent dilated perivascular spaces. No abnormal enhancement." -PT consult -Generally he is quite oriented, occasionally stumbles over some words or takes a minute to come up with an answer -Plan for LP tomorrow, high-volume LP follow-up PT evaluation to determine if there is improvement in his shuffling gait/confusion DVT ppx SCD Full code LOS 2-3 days
--- NOTE | 2024-07-24 21:20 | CON ---
Reason For Consultation: Consultation called because of possible normal pressure hydrocephalus. History Of Present Illness: Mr. Laughlin is an 83-year-old right-handed patient with history of dementia , potentially related to Alzheimer's disease, who has progressive instability of gait with tendency t o fall, having fallen multiple times at home, and having difficulty with control of bowel and bladder along with memory loss, which again attributed to possible Alzheimer's disease. The patient fell ju st prior to his admission on the 3rd, hitting the back of his head on a concrete outside of his house . He was brought to [facility]. His head and cervical spine CT scan showed some soft tissu e swelling in the back of the head. There was however a finding of no acute intracranial abnormality such as stroke or hemorrhage or skull fracture. The patient did show a ventriculomegaly out of prop ortion to the degree of cerebral atrophy. The radiologist noted normal pressure hydrocephalus as a c onsideration. The patient's gait at home had been small steps with shuffling in addition to the issu e of memory loss and bladder and bowel problems which suggest possibility of that. In addition, he d id have cervical spine MRI, which did show moderate to severe bilateral C3-4, C4-5, and C5-6 nerve ro ot foraminal narrowing. Additional thoracic and lumbar spine CT scan showed no acute intraosseous pr ocesses. There is demineralization appearance of the bones. There is a chronic mild T2 compression deformity. Mild degeneration of lumbar spine at L3-4 and L4-5. CT scan of the lumbar spine shows no acute abnormalities. The bone was demineralized and chronic T2 compression deformity. MRI of his b rain done yesterday showed no acute intracranial abnormalities. Again, ventriculomegaly out of propo rtion to the degree of cerebral atrophy. No specific imaging features on the exam either to confirm or exclude normal pressure hydrocephalus. CSF attenuation in the right basal ganglia and mora radi christel represent dilated perivascular spaces. No abnormal enhancement seen. His laboratory studies ess entially showed an unremarkable complete blood count with differential except for mild anemia. Initi ally, there was a slight elevation of white blood cell count, but now normal at 8.1. INR 1.43. His electrolyte panel shows slightly elevated chloride, BUN slightly elevated to 19, chloride was 114, bl ood sugars ranged from 85 to 152, calcium slightly low at 8.1. Liver function studies; 0.1 bilirubin , AST 17, ALT 15, alkaline phosphatase 131, TSH 3.0, free T4 0.85. Urinalysis; trace blood, 5 to 10 red blood cells, turbid clarity, pH 7.5. Does have pending CSF study, where we will have high volume lumbar puncture done. Allergies: NO KNOWN DRUG ALLERGIES. Current Medications: Tylenol Extra Strength 500 mg every 4 hours as needed, Lovenox 40 mg subcutaneo us daily, Zofran 4 mg every 6 hours as needed, sodium chloride, receiving IV hydration 100 cc an hour . Family History: Noncontributory. Social History: The patient lives in single family home. No alcohol, tobacco, or IV drug use. Review of Systems: No recent fevers, chills, nausea, vomiting, myalgias, arthralgias. Again, difficulty with gait, shuf fling, unsteady, some bowel and bladder loss and some cognitive impairment noted. Physical Examination: Vital Signs: Blood pressure range 131 to 142 over 64 to 75, pulse 59 to 66, respiratory rate 16 to 2 0, temperature is 98.0, oxygen saturation 98%. Weight 129 pounds, height 5 feet 9 inches, BMI 20.6. General: Mr. Laughlin is doing well. He is sitting at the side of bed. HEENT: He appears normocephalic. Slight swelling in the back of the head where he bumped his head. Otherwise, he is atraumatic. Sclerae anicteric. Oropharynx pink and moist. Neck: Supple. Chest: Clear. Heart: Regular. Extremities: No significant edema or cyanosis noted. Neuro: Motor exam shows no focal motor deficits in upper and lower extremity. Sensation, stocking g love loss to light, touch, temperature. In terms of gait, he did ambulate about 200 feet without an assistive device with contact guard assistance needed. Did have shuffling gait. He was able to pick his feet up on cues. Did have slow jay jay, he was up and down 12 steps, step over step pattern, si ngle handrail, contact guard to minimum assistance. The patient was somewhat impulsive at 1 point, d id reach to get out of bed, and bed alarm did sound. He does have decreased safety awareness. Assessment: Mr. Laughlin is an 83-year-old patient with a possibility of normal pressure hydrocephalus. He has multiple episodes of falls with loss of balance, mild cognitive impairment, and difficulty co ntrolling bowel and bladder function. Plan: He is scheduled for high volume lumbar puncture. We will hold off aspirin at this point and m ay restart after the procedure. Lovenox for DVT prophylaxis maybe continued. The patient may benefi t from aggressive therapy once he is complete with his lumbar puncture. He does have baseline physic al therapy evaluation documented. He will be followed while in hospital. It is noted that the patie nt does benefit with his gait and later on potentially with his cognition and bladder malfunction. A V shunt maybe placed. Prior to that, he may require multiple repeat high volume lumbar punctures, wh ere 30 to 35 cc of CSF maybe removed. Blood work will be sent off to help rule out Alzheimer's disea se including the CSF beta 42/40 ratio in addition to serum [id number] and beta-amyloid 42/40 ratio. LB/MODL Voice ID: [id number] Report ID: [id number]
[2024-07-25 05:00] VITALS: BMI 20.7
[2024-07-25 06:18] LABS: Hematocrit 37.9 % (39.6-49.0); Hemoglobin 12.9 g/dL (13.6-17.9); MCH 30.4 pg (27.0-35.0); MCHC 34.2 g/dL (32.0-36.0); Platelets 258 thou/uL (152-406); RBC Red Blood Cell Count 4.26 M/uL (4.33-5.43); Red Cell Distribution Width 13.6 % (12.1-15.2)
[2024-07-25 06:46] LABS: Anion Gap 7.1 mEq/L (5.0-15.0); Potassium 3.1 mEq/L (3.5-5.1)
[2024-07-25 08:41] LABS: PT Prothrombin Time 14.1 SECONDS (9.4-12.5); Protime INR 1.35
--- NOTE | 2024-07-25 12:21 | RAD REPORT ---
PROCEDURE: FLUOROSCOPY GUIDED LUMBAR PUNCTURE CLINICAL INDICATION: Normal pressure hydrocephalus COMPLICATIONS: No immediate complications. PROCEDURE DETAILS: Consent: Informed consent for the procedure including risks, benefits and alternatives was obtained a nd time-out was performed prior to the procedure. Preparation: The patient was positioned prone on the fluoroscopic table. Appropriate area of the back was prepared and draped using all elements of maximal sterile barrier technique including sterile gloves, sterile gown, cap, mask, large sterile sheet, hand hygiene and cutaneous antisepsis with 2% c hlorhexidine. Imaging prior to procedure: Plain radiographs of the lumbar spine. Procedure: Local anesthesia was administered. Under fluoroscopic guidance, a spinal needle was advanc ed into the subarachnoid space at the level of L5-S1. Fluid obtained: 26 cc of clear CSF Opening pressure: Subjectively normal. Fluoroscopy time: 0.7 minutes Estimated blood loss: Less than 10 mL. IMPRESSION: Technically successful fluoroscopic-guided high-volume lumbar puncture as detailed.
[2024-07-25 13:34] LABS: CSF Glucose 55 mg/dL (40-70)
[2024-07-25 14:01] LABS: Appearance CLEAR (CLEAR); Body Fluid Source CSF; Color of Supernate Not Xanthochromic (Not Xantho); Color of fluid Colorless (COLORLESS); Tube # SINGLE
[2024-07-25 14:03] LABS: Body Fluid WBC 1 /mm^3; Fluid Total Cells Count 100
--- NOTE | 2024-07-25 18:13 | P.DS ---
Admission Date: 07/23/24 Discharge Date: 07/25/24 Disposition: DC HOME/HOME HEALTH CARE Discharge Condition: FAIR Reason for Admission: Abnormal gait Brief History of Present Illness: Patient is a 83-year-old male with a past medical history of Alzheimer's dementia. Presented to the ER accompanied by and neighbor for evaluation of abnormal gait. states that patient has been having shuffling gait. Additional symptoms including worsening confusion. Symptoms associated with bowel incontinence. No recent fall reported. CT head in the ER revealed ventriculomegaly concerning for normal pressure hydrocephalus. The ER has contacted neurology and patient hospitalized for further evaluation and management. Hospital Course: Diagnosis Ventriculomegaly, Eval for NPH Bilateral lower extremity weakness Bowel incontinence Alzheimer dementia Patient evaluated by neurology Dr. Lew MRI brain with and without- "No acute intracranial abnormality. No acute infarct. Ventriculomegaly out of proportion to the degree of cerebral atrophy reported. No specific imaging features on this exam to either confirm or exclude normal pressure hydrocephalus. CSF attenuation structures in the right basal ganglia and mora radiata favored to represent dilated perivascular spaces. No abnormal enhancement." High-volume lumbar puncture done, patient is able to ambulate without assistive device but with shuffling gait. Patient deemed stable for discharge per Dr. Lew. Dr. Lew recommended Diamox 250 mg twice a day. Vital Signs/Physical Exam: Temp Pulse Resp BP Pulse Ox 98 F 62 16 172/85 H 98 07/25/24 16:00 07/25/24 16:00 07/25/24 16:00 07/25/24 16:00 07/25/24 16:00 General: In no apparent distress, Oriented x3 HEENT: Mucous membr. moist/pink Neck: Supple, JVD not distended Respiratory: Clear to auscultation bilaterally, Normal air movement Cardiovascular: No edema, Regular rate/rhythm, Normal S1 S2 Gastrointestinal: Normal bowel sounds, Soft and benign, Non-distended, No tenderness Musculoskeletal: No swelling Integumentary: No rashes, No cyanosis Neurological: Normal strength at 5/5 x4 extr, Cranial nerves 3-12 intact Laboratory Data at Discharge: WBC 7.90 thou/uL (4.3-10.9) 07/25/24 05:47 Hgb 12.9 g/dL (13.6-17.9) L 07/25/24 05:47 Hct 37.9 % (39.6-49.0) L 07/25/24 05:47 Plt Count 258 thou/uL (152-406) 07/25/24 05:47 PT 14.1 SECONDS (9.4-12.5) H 07/25/24 08:20 INR 1.35 07/25/24 08:20 Sodium 143 mEq/L (136-145) 07/25/24 05:47 Potassium 3.1 mEq/L (3.5-5.1) L D 07/25/24 05:47 BUN 17 mg/dL (7-18) 07/25/24 05:47 Creatinine 1.00 mg/dL (0.70-1.30) 07/25/24 05:47 Glucose 90 mg/dL (74-106) 07/25/24 05:47 Phosphorus 2.8 mg/dL (2.5-4.9) 07/23/24 05:17 Magnesium 2.1 mg/dL (1.6-2.4) 07/23/24 05:17 Total Bilirubin 0.3 mg/dL (0.2-1.0) 07/22/24 20:55 AST 17 U/L (15-37) 07/22/24 20:55 ALT 15 U/L (16-61) L 07/22/24 20:55 Alkaline Phosphatase 131 U/L (45-117) H 07/22/24 20:55 Home Medications: Rivastigmine Patch [Exelon 9.5 mg Patch] 13.3 mg TD BEDTIME 07/24/24 acetaZOLAMIDE [Acetazolamide] 250 mg PO BID #60 tab 07/25/24 New Medications: acetaZOLAMIDE [Acetazolamide] 250 mg PO BID #60 tab Diet: AHA Activity: Fall precautions Followup: Abdirashid Kaiser MD [Primary Care Provider] - 1-2 Weeks Time spent managing pt's care (in minutes): 35
--- NOTE | 2024-07-25 19:45 | PN ---
The patient is seen for neurological followup. Subjective: With this report not having a very happy experience after doing lumbar puncture, said th e procedure was okay, but people in the room however he is lying in bed after the 26 cc of CSF was removed after he had the high-volume lumbar puncture to address issue of normal-pressure hyd rocephalus. Review of Systems: Otherwise, in terms of objective he says, no fevers, chills right now. No nausea or vomiting. Denie s any headache, any myalgias, arthralgias, rash, or any other issues. Physical Examination: Vital Signs: Blood pressure went from 154/85 to 180/86, pulse of 82, respiratory rate 17 to 20, temp erature 98.4, O2 saturation 99% on room air, weight 140 pounds, height 5 feet 9 inches, BMI 28.7. General: Again, Mr. Laughlin is resting in bed. He is smiling, communicating and is still a bit tangent ial in his speech, but able to follow all instructions, all commands. Cranial nerves show no obvious focal deficits there. In terms of motor, sensory coordination, no focal deficits just diffuse weakn ess is noted. Laboratory Studies: White blood cell count 7.9, hemoglobin 12.9, platelets 258. INR today 1.35. So dium 143, potassium 3.1, chloride 113, carbon dioxide 26, BUN 70, creatinine 1, glucose ranged from 8 9 to 113, calcium 8.5. In terms of his CSF studies, glucose 55, protein 54. He did have 1 white blo od cells, 0 red blood cell, and the pending studies include beta amyloid panel, VDRL as well. Assessment And Plan: Mr. Laughlin is an 83-year-old patient who has apparent normal-pressure hydrocephal us per the imaging findings. He has gait issues, bladder problems and some cognitive impairment. In addition, he does have a risk of deep vein thrombus. He is on Lovenox for that. Nausea treated wit h Zofran and dehydration addressed with normal saline, pain addressed with Tylenol. In terms of his plan, patient should work again with Physical therapy to begin to assess his ability to ambulate safe ly to mobilize, transfers as well as perform activities of daily living. Once he is out of the acute phase from a lumbar puncture may get back to therapy and make a comparison to what he did yesterday. Where he was able to ambulate about up to 250 feet without an assistive device with contact guard a ssistance, did have a shuffling gait. He is able to hot die picker his feet when cued. He did have a slow jay jay, occasional swaying to the right when reaching on handrails, but the patient actually did ref use to use an assistive device when he is ambulating. He did go up and down 12 steps extending them using a step over step pattern with single handrail with contact guard to minimum assistance. Plan: He should continue with physical therapy and maybe occupational therapy again up in the rehab unit. Continue with current medications. If need be, a blood patch will be administered. If he has post LP headaches, which is positional, currently has no such headache. Tylenol will be used right now and if he does benefit from a high-volume lumbar puncture may consider a repeat and eventually pe rhaps a shunt, which may either be ventriculoperitoneal or lumboperitoneal, that will be determined a fter he is discharged and follow up in clinic. BEBA/YVETTE Voice ID: [id number] Report ID: [id number]
[2024-07-25] MEDS ORDERED: RIVASTIGMINE 13.3 MG/24 HR TOP SCH (21:00)
[2024-07-26 06:37] LABS: Hematocrit 40.7 % (39.6-49.0); Hemoglobin 13.6 g/dL (13.6-17.9); MCH 30.3 pg (27.0-35.0); MCHC 33.4 g/dL (32.0-36.0); MCV 90.8 fL (80-100); MPV 7.9 fL (7.6-11.3); Platelets 282 thou/uL (152-406); RBC Red Blood Cell Count 4.48 M/uL (4.33-5.43)
[2024-07-26 06:52] LABS: Anion Gap 3.9 mEq/L (5.0-15.0); Potassium 3.9 mEq/L (3.5-5.1)
[2024-07-26 08:52] VITALS: BP 155/77; TEMP 97.7
[2024-07-26 09:28] VITALS: O2SAT 94
--- NOTE | 2024-07-26 19:12 | P.PN ---
Date of Service: 07/25/24 Subjective: Awake, feeling well, conversing tolerated LP, PT evaluated Ready for discharge. ROS: 10 point ROS as noted above, otherwise negative Physical exam GEN: Alert and oriented x3, NAD HEENT: Normal conjunctiva, sclera anicteric CV: Normal sinus rhythm, S1 S2 present, no edema Pulm: Nonlabored breathing, on room air ABD: Soft and nontender on palpation, ND/NT Integumentary: No rashes Neuro: Normal speech, normal affect, oriented but forgets words periodically/takes some time to answer appropriately on occasion Vitals reviewed Assessment Ventriculomegaly, Eval for NPH Bilateral lower extremity weakness Bowel incontinence Alzheimer dementia Plan: Ventriculomegaly, Eval for NPH Bilateral lower extremity weakness Bowel incontinence Alzheimer dementia -Case discussed with neurology -Obtain MRI brain with and without- "No acute intracranial abnormality. No acute infarct. Ventriculomegaly out of proportion to the degree of cerebral atrophy. No specific imaging features on this exam to either confirm or exclude normal pressure hydrocephalus. Could consider neurology consultation and/or referral. CSF attenuation structures in the right basal ganglia and mroa radiata favored to represent dilated perivascular spaces. No abnormal enhancement." -PT consult -Generally he is quite oriented, occasionally stumbles over some words or takes a minute to come up with an answer -Plan for LP tolerated, follow-up PT records continued shuffling gait and confusion. DVT ppx SCD Full code LOS 2-3 days
== END 2024-07-26 10:48 | disposition home health service (06) | DRG 57 ==
LOC: ER 19:19 → ERHOLD 22:39 → 4TH 07-23 15:33 → OBSVTOIN 07-23 15:46
PROVIDERS: ADMIT Internal Medicine; ATTEND Internal Medicine
PROC: 009U3ZX Drainage of Spinal Canal, Percutaneous Approach, Diagnostic (ICD-10-PCS; principal; 2024-07-25)
DX: G91.2 (Idiopathic) normal pressure hydrocephalus (principal); D64.9 Anemia, unspecified; G30.9 Alzheimer's disease, unspecified; F02.80 Dementia in other diseases classified elsewhere, unspecified severity, without behavioral disturbance, psychotic disturbance, mood disturbance, and anxiety; S09.90XA Unspecified injury of head, initial encounter; R53.1 Weakness; R27.0 Ataxia, unspecified; R29.6 Repeated falls; Z91.81 History of falling; Z79.899 Other long term (current) drug therapy; W18.30XA Fall on same level, unspecified, initial encounter; Y93.9 Activity, unspecified; Y92.018 Other place in single-family (private) house as the place of occurrence of the external cause; Y99.9 Unspecified external cause status
CPT/HCPCS: 36415; 70450; 70553; 71045; 72125; 72128; 72131; 72170; 77003; 80048; 80076; 81001; 82542; 82945; 82947; 83605; 83735; 83880; 84100; 84157; 84439; 84443; 84484; 85025; 85027; 85610; 86140; 86592; 87070; 89050; 93005; 97116; 97161; 97530; 99285; A9577; G0378; J1650; J7030

== ENCOUNTER 2024-08-10 12:06 | Emergency (ER) | payer OTHER ==
[2024-08-10] MEDS ORDERED: FAMOTIDINE 20 MG/2 ML VIAL IV ONE (12:54)
[2024-08-10] MEDS ORDERED: FOLIC ACID 5 MG/ML VIAL ONE (12:55)
[2024-08-10] MEDS ORDERED: NA CHLORIDE 0.9% 1,000 ML ONE (12:56)
[2024-08-10 13:27] LABS: Absolute Basophils 0.1 K/uL (0-0.5); Absolute Eosinophils 0.1 K/uL (0-0.5); Absolute Lymphocytes (CBC) 1.4 K/uL (0.7-4.9); Absolute Monocytes 0.6 K/uL (0.1-1.3); Absolute Neutrophil 5.3 K/uL (1.8-8.0); Basophils % 0.8 % (0-1.3); Eosinophils % 1.3 % (0-4.4); Hematocrit 42.2 % (39.6-49.0); Hemoglobin 14.1 g/dL (13.6-17.9); Lymphocytes % 19.4 % (15.3-44.8); MCH 29.9 pg (27.0-35.0); MCHC 33.4 g/dL (32.0-36.0); MCV 89.6 fL (80-100); MPV 8.4 fL (7.6-11.3); Monocytes % 7.6 % (3.3-12.3); Neutrophils % 70.9 % (41.7-73.7); Nucleated Red Blood Cells % 0.2 % (0-0); Platelets 306 thou/uL (152-406); RBC Red Blood Cell Count 4.71 M/uL (4.33-5.43)
[2024-08-10 13:35] LABS: PT Prothrombin Time 13.8 SECONDS (10.0-13.0); Protime INR 1.22
--- NOTE | 2024-08-10 13:36 | RAD REPORT ---
EXAMINATION: CT HEAD WITHOUT CONTRAST CLINICAL INDICATION: Male, 83 years old.DIZZINESS TECHNIQUE: Axial CT images from the skull base to the vertex without intravenous contrast. Coronal an d sagittal reformatted images were created from the data set. One or more of the following dose reduction techniques were used: Automated exposure control, adjustment of the mA and/or kV according to patient size, and/or iterative reconstruction. Unless otherwise specified, incidental findings do not require dedicated imaging follow-up. [id number]. COMPARISON: MRI 07/23/2024, head CT 07/22/2004 FINDINGS: INTRACRANIAL: No acute intracranial hemorrhage. No hydrocephalus. No mass effect or midline shift. No significant white matter disease.Hypoattenuation and probable dilated perivascular space in the right coronary radiata and basal ganglia is unchanged. VASCULATURE: No visualized abnormalities in the arteries or dural venous sinuses. SCALP/SKULL: No significant soft tissue or osseous abnormalities. SINUSES: The visualized paranasal sinuses and mastoid air cells are predominantly clear. IMPRESSION: No acute intracranial abnormality.
--- NOTE | 2024-08-10 13:46 | RAD REPORT ---
EXAM: Chest Single View HISTORY: COUGH COMPARISON: 07/22/2024 FINDINGS: LUNGS/PLEURA: The lungs are clear. No pleural effusions or pneumothorax. No pulmonary edema. MEDIASTINUM: The mediastinal silhouette is within normal limits. CARDIAC: The cardiac silhouette is within normal limits. UPPER ABDOMEN: No significant abnormality. BONES: No acute abnormality. LINES/TUBES/OTHER: N/A IMPRESSION: No evidence of acute cardiopulmonary disease.
[2024-08-10 13:49] LABS: ALT/SGPT 15 U/L (16-61); AST/SGOT 15 U/L (15-37); Albumin 3.2 g/dL (3.4-5.0); Albumin/Globulin Ratio 0.8 (1.1-1.8); Alkaline Phosphatase 133 U/L (45-117); Anion Gap 9.8 mEq/L (5.0-15.0); BUN Blood Urea Nitrogen 46 mg/dL (7-18); Bicarbonate 19 mEq/L (21-32); Bilirubin Total 0.3 mg/dL (0.2-1.0); Globulin 4.1 g/dL (2.3-3.5); Glomerular Filtration Rate 59 ml/min (=/>90); Glucose Level 77 mg/dL (74-106); Lipase 38 U/L (13-75); Magnesium 2.2 mg/dL (1.6-2.4); NT PRO-BNP 137 pg/mL (<450); Potassium 3.8 mEq/L (3.5-5.1); Protein, Total 7.3 g/dL (6.4-8.2); Sodium Level 142 mEq/L (136-145); Troponin High Sensitivity 20.9 pg/mL (<58.9)
[2024-08-10 13:50] LABS: Bilirubin Direct < 0.2 mg/dL (0-0.2); Bilirubin Indirect, Calculated 0.1 mg/dL (0.2-0.8)
--- NOTE | 2024-08-10 16:10 | ER ---
Nurse's Notes [facility] Name: Pierre Laughlin Age: 83 yrs Sex: Male : 1940 Arrival Date: 08/10/2024 Time: 12:06 Bed 13 Private MD: Diagnosis: Alzheimer's disease, unspecified;Dementia in other diseases classified elsewhere without behavioral disturbance Presentation: 08/10 12:37 Chief complaint: EMS states: Wandered into neighbor's house this morning, reports hb worsening confusion + combativeness over last 2-3 weeks. 4 weeks s/p AV shunt placement. Hx of Alzheimer's, AOx2-3 at baseline. Coronavirus screen: At this time, the client does not indicate any symptoms associated with coronavirus-19. Ebola Screen: No symptoms or risks identified at this time. Initial Sepsis Screen: Does the patient meet any 2 criteria? No. Patient's initial sepsis screen is negative. Does the patient have a suspected source of infection? No. Patient's initial sepsis screen is negative. Risk Assessment: Do you want to hurt yourself or someone else? Patient reports no desire to harm self or others. Onset of symptoms was August 10, 2024. 12:37 Method Of Arrival: EMS: [facility] hb 12:37 Acuity: CARLEY 2 hb Historical: - Allergies: 12:40 No Known Allergies; hb - PMHx: 12:40 Alzheimers; hb - Immunization history:: Adult Immunizations up to date. - Infectious Disease History:: Denies. - Social history:: Smoking status: Patient denies any tobacco usage or history of. Screenin:06 [facility] ED Fall Risk Assessment (Adult) History of falling in the last 3 months, db including since admission No falls in past 3 months (0 pts) Confusion or Disorientation Yes (5 pts) Intoxicated or Sedated No (0 pts) Impaired Gait Mobility Assist Device Used No (0 pt) Altered Elimination No (0 pt) Score/Fall Risk Level 3 or more points = High Risk Oriented to surroundings, Maintained a safe environment, Hourly rounding (assess needs \T\ fall precautionary measures) done. Abuse screen: Denies threats or abuse. Denies injuries from another. Nutritional screening: No deficits noted. Tuberculosis screening: No symptoms or risk factors identified. Assessment: 13:30 Reassessment: Patient appears in no apparent distress at this time. Patient and/or db family updated on plan of care and expected duration. Pain level reassessed. General: Appears Behavior is. Neuro: Level of Consciousness is confused, Oriented to. 16:18 Reassessment: PATIENT TOLERATED WATER FOR PO CHALLENGE. db 17:05 Reassessment: Patient appears in no apparent distress at this time. Patient and/or db family updated on plan of care and expected duration. Pain level reassessed. Reassessment: Patient appears in no apparent distress at this time. General: Appears in no apparent distress. comfortable, Behavior is calm, cooperative. Pain: Denies pain. Neuro: Level of Consciousness is awake, alert, obeys commands, Oriented to person, place. Vital Signs: 12:37 BP 140 / 82; Pulse 59; Resp 16; Temp 98.1; Pulse Ox 100% on R/A; Pain 0/10; hb 13:30 BP 155 / 74; Pulse 62; Resp 18; Pulse Ox 99% ; db 14:15 BP 147 / 82; Pulse 63; Resp 18; Pulse Ox 100% ; db 14:30 BP 159 / 86; Pulse 61; Resp 18; Pulse Ox 100% ; db 15:00 BP 172 / 74; Pulse 62; Resp 18; Pulse Ox 100% on R/A; db 15:30 BP 162 / 78; Pulse 61; Resp 18; Pulse Ox 100% ; db 12:37 Pain Scale: Adult hb NIH Stroke Scale Scores: 16:00 NIHSS Score: 0 [facility] ED Course: 12:26 Patient arrived in ED. em1 12:38 Chantale Peterson, RN is Primary Nurse. db 12:39 Triage completed. hb 12:40 Arm band placed on. hb 12:42 Adam Ferguson MD is Attending Physician. blank 13:10 Missed attempt(s): 20 gauge in right forearm. Bleeding controlled, band aid applied, db catheter tip intact. 13:28 CT Head Brain wo Cont In Process Unspecified. EDMS 13:28 Patient moved back from CT. db 13:42 XRAY Chest (1 view) In Process Unspecified. EDMS 13:47 Inserted saline lock: 22 gauge in right antecubital area, using aseptic technique. hb Flushed with 10 mL NS. 16:08 Abdirashid Kaiser MD is Referral Physician. blank 16:10 Jose Alejandro Lew MD is Referral Physician. [facility] 17:07 Patient has correct armband on for positive identification. Bed in low position. Call db light in reach. Side rails up X 1. Provided Education on: DISCHARGE AND FOLOWUP. Client placed on continuous cardiac and pulse oximetry monitoring. NIBP monitoring applied. patient monitor on. Pulse ox on. Warm blanket given. Pillow given. 17:07 No provider procedures requiring assistance completed. IV discontinued, intact, db bleeding controlled, No redness/swelling at site. Administered Medications: 13:47 Drug: NS 0.9% IV 500 ml 500 ml IV at 1 bolus once; to be given as a bolus over 30 hb minutes Volume: 500 ml; Route: IV; Rate: 1 bolus; Site: right antecubital; 17:10 Follow up: Response: No adverse reaction; IV Status: Completed infusion; IV Intake: db 500ml 14:00 Drug: NS 0.9% IV 500 ml 500 ml IV at 100 ml/hr once Volume: 500 ml; Route: IV; Rate: db 100 ml/hr; Site: right antecubital; 17:10 Follow up: Response: No adverse reaction; IV Status: Completed infusion db 14:00 Drug: foLIC Acid IVPB 1 mg IVPB once Route: IVPB; Site: right antecubital; db 17:10 Follow up: Response: No adverse reaction; IV Status: Completed infusion db 14:00 Drug: Famotidine IVP 20 mg IVP once; dilute with 10 mL 0.9% NaCl; give over 2 minutes db Route: IVP; Site: right antecubital; 17:10 Follow up: Response: No adverse reaction db Medication: 17:07 VIS not applicable for this client. db Intake: 17:10 IV: 500ml; Total: 500ml. db Outcome: 16:10 Discharge ordered by . [facility] 17:07 Discharged to home via wheelchair, with family, db 17:07 Condition: stable 17:07 Discharge instructions given to patient, Instructed on discharge instructions, follow up and referral plans. Prescriptions given X 1, 17:09 Patient left the ED. db NIH Stroke Scale - NIH Stroke Score Date: 08/10/2024 Time: 16:00 Total Score = 0 10. Dysarthria (speech clarity - read or repeat words) - 0(Normal) 11. Extinction and Inattention (visual/tactile/auditory/spatial/personal) - 0(No abnormality) 1a. Level of Consciousness (LOC) - 0(Alert) 1b. Level of Consciousness (LOC) (Month \T\ Age) - 0(Both) 1c. LOC Commands (Open \T\ Closes Eyes/Carb[employer]) - 0(Both) 2. Best Gaze (Lateral Gaze Paresis) - 0(Normal) 3. Visual Field Loss - 0(No visual loss) 4. Facial Palsy - 0(Normal) 5a. Left Arm: Motor (10-second hold) - 0(No drift) 5b. Right Arm: Motor (10-second hold) - 0(No drift) 6a. Left Leg: Motor (5-second hold - always test supine) - 0(No drift) 6b. Right Leg: Motor (5-second hold - always test supine) - 0(No drift) 7. Limb Ataxia (finger/nose \T\ heel/gatica - test with eyes open) - 0(Absent) 8. Sensory Loss (pinprick arms/legs/face) - 0(Normal) 9. Best Language: Aphasia (description/naming/reading) - 0(No aphasia) Initials: blank Signatures: Dispatcher [employer] Adam Silverio MD MD cha Martinez, Eric em1 Lilly Mortensen, Chantale Shrestha RN, RN RN db
--- NOTE | 2024-08-10 16:10 | EDPHYS ---
Physician Documentation [facility] Name: Pierre Laughlin Age: 83 yrs Sex: Male : 1940 Arrival Date: 08/10/2024 Time: 12:06 Bed 13 Private MD: ED Physician Adam Ferguson HPI: 08/10 15:59 This 83 yrs old Male presents to ER via EMS with complaints of Altered Mental blank Status. 15:59 The patient presents with confusion, trouble concentrating. Onset: The symptoms/episode blank began/occurred 2 day(s) ago. Possible causes: CVA or TIA, drug use, head injury, low blood sugar, seizure, sepsis. Associated signs and symptoms: Pertinent positives: AMS/ DEMENTIA. Current symptoms: In the emergency department the patient's symptoms are unchanged from the initial presentation, despite home interventions. Patient's baseline: Neuro: alert but confused, Motor: right-sided weakness, Ambulation: walks with assist only, Speech: normal. The patient has experienced similar episodes in the past, several times. Historical: - Allergies: 12:40 No Known Allergies; hb - PMHx: 12:40 Alzheimers; hb - Immunization history:: Adult Immunizations up to date. - Infectious Disease History:: Denies. - Social history:: Smoking status: Patient denies any tobacco usage or history of. ROS: 16:00 Constitutional: Negative for fever, chills, and weight loss, Eyes: Negative for injury, blank pain, redness, and discharge, ENT: Negative for injury, pain, and discharge, Neck: Negative for injury, pain, and swelling, Cardiovascular: Negative for chest pain, palpitations, and edema, Respiratory: Negative for shortness of breath, cough, wheezing, and pleuritic chest pain, Abdomen/GI: Negative for abdominal pain, nausea, vomiting, diarrhea, and constipation, Back: Negative for injury and pain, : Negative for injury, bleeding, discharge, and swelling, MS/Extremity: Negative for injury and deformity, Skin: Negative for injury, rash, and discoloration, Psych: Negative for depression, anxiety, suicide ideation, homicidal ideation, and hallucinations, Allergy/Immunology: Negative for hives, rash, and allergies, Endocrine: Negative for neck swelling, polydipsia, polyuria, polyphagia, and marked weight changes, Hematologic/Lymphatic: Negative for swollen nodes, abnormal bleeding, and unusual bruising, 16:00 Neuro: Positive for altered mental status, dizziness, weakness, Exam: 16:00 Constitutional: This is a well developed, well nourished patient who is awake, alert, blank and in no acute distress. Head/Face: Normocephalic, atraumatic. Eyes: Pupils equal round and reactive to light, extra-ocular motions intact. Lids and lashes normal. Conjunctiva and sclera are non-icteric and not injected. Cornea within normal limits. Periorbital areas with no swelling, redness, or edema. ENT: Nares patent. No nasal discharge, no septal abnormalities noted. Tympanic membranes are normal and external auditory canals are clear. Oropharynx with no redness, swelling, or masses, exudates, or evidence of obstruction, uvula midline. Mucous membranes moist. Neck: Trachea midline, no thyromegaly or masses palpated, and no cervical lymphadenopathy. Supple, full range of motion without nuchal rigidity, or vertebral point tenderness. No Meningismus. Chest/axilla: Normal chest wall appearance and motion. Nontender with no deformity. No lesions are appreciated. Cardiovascular: Regular rate and rhythm with a normal S1 and S2. No gallops, murmurs, or rubs. Normal PMI, no JVD. No pulse deficits. Respiratory: Lungs have equal breath sounds bilaterally, clear to auscultation and percussion. No rales, rhonchi or wheezes noted. No increased work of breathing, no retractions or nasal flaring. Abdomen/GI: Soft, non-tender, with normal bowel sounds. No distension or tympany. No guarding or rebound. No evidence of tenderness throughout. Back: No spinal tenderness. No costovertebral tenderness. Full range of motion. Male : Normal genitalia with no discharge or lesions. Skin: Warm, dry with normal turgor. Normal color with no rashes, no lesions, and no evidence of cellulitis. MS/ Extremity: Pulses equal, no cyanosis. Neurovascular intact. Full, normal range of motion., bilateral aka Psych: Awake, alert, with orientation to person, place and time. Behavior, mood, and affect are within normal limits. 16:00 Neuro: Orientation: is normal, appropriate for stated age, no acute changes, Mentation: is normal, appropriate for stated age, no acute changes, Memory: is normal, appropriate for stated age, no acute changes, Cranial nerves: grossly normal, is grossly normal based on the patient's age, no acute changes, Cerebellar function: is grossly normal, is grossly normal based on the patient's age, no acute changes, Motor: is normal, is grossly normal based on the patient's age, no acute changes, moves all fours, strength is 5/5 in all extremities, Sensation: no obvious gross deficits, appropriate no acute changes, Gait: not tested. seizure activity, is not displayed by the patient, 16:11 ECG was reviewed by the Attending Physician. [facility] Vital Signs: 12:37 BP 140 / 82; Pulse 59; Resp 16; Temp 98.1; Pulse Ox 100% on R/A; Pain 0/10; hb 13:30 BP 155 / 74; Pulse 62; Resp 18; Pulse Ox 99% ; db 14:15 BP 147 / 82; Pulse 63; Resp 18; Pulse Ox 100% ; db 14:30 BP 159 / 86; Pulse 61; Resp 18; Pulse Ox 100% ; db 15:00 BP 172 / 74; Pulse 62; Resp 18; Pulse Ox 100% on R/A; db 15:30 BP 162 / 78; Pulse 61; Resp 18; Pulse Ox 100% ; db 12:37 Pain Scale: Adult hb NIH Stroke Scale Scores: 16:00 NIHSS Score: 0 [facility] MDM: 12:42 Medical Screening Exam initiated [facility] 16:03 Differential Diagnosis: CVA, electrolyte abnormality, hypoglycemia, intracranial bleed, blank pneumonia, volume depletion, cardiac arrhythmia, CVA, generalized weakness, GI bleed, hypovolemia. Data reviewed: vital signs, nurses notes, lab test result(s), EKG, radiologic studies, plain films. Consideration of Admission/Observation Patient was admitted/placed on observation. Escalation of care including admission/observation considered. I considered the following discharge prescriptions or medication management in the emergency department Medications were administered in the Emergency Department. See MAR. Independent interpretation of the following test(s) in the Emergency Department EKG: See my EKG interpretation above. Test considered but Not performed: MRI: NO MRI BRAIN. Historians other than the Patient: EMS: EMS. Spouse/Significant Other: WELL INFORMED. Care significantly affected by the following chronic conditions: DEMEMTIA. 08/10 12:43 Order name: Basic Metabolic Panel; Complete Time: 15:46 [facility] 08/10 12:43 Order name: CBC with Diff; Complete Time: 15:46 [facility] 08/10 12:43 Order name: LFT's; Complete Time: 15:46 [facility] 08/10 12:43 Order name: Magnesium; Complete Time: 15:46 [facility] 08/10 12:43 Order name: NT PRO-BNP; Complete Time: 15:46 [facility] 08/10 12:43 Order name: PT-INR; Complete Time: 15:46 [facility] 08/10 12:43 Order name: Troponin HS; Complete Time: 15:46 [facility] 08/10 12:43 Order name: Urinalysis w/ reflexes; Complete Time: 16:51 [facility] 08/10 12:43 Order name: Lipase; Complete Time: 15:46 [facility] 08/10 12:43 Order name: XRAY Chest (1 view); Complete Time: 15:46 [facility] 08/10 12:43 Order name: CT Head Brain wo Cont; Complete Time: 15:46 [facility] 08/10 12:43 Order name: Cardiac monitoring; Complete Time: 13:29 [facility] 08/10 12:43 Order name: EKG - Nurse/Tech; Complete Time: 13:29 [facility] [place] 08/10 12:43 Order name: IV Saline Lock; Complete Time: 13:29 [facility] 08/10 12:43 Order name: Labs collected and sent; Complete Time: 13:29 [facility] 08/10 12:43 Order name: O2 Per Protocol; Complete Time: 13:29 [facility] [place] 08/10 12:43 Order name: O2 Sat Monitoring; Complete Time: 13:29 [facility] [place] 08/10 15:54 Order name: Misc. Order: GET UA; Complete Time: 17:10 [facility] [place] 08/10 16:11 Order name: PO challenge; Complete Time: 16:18 [facility] [place] EC:11 Rate is 57 beats/min. Rhythm is regular. QRS [place] is Normal. MA interval is normal. QRS blank interval is normal. QT interval is normal. No Q waves. T waves are Normal. Clinical impression: NSR w/ Non-specific ST/T Changes and No evidence of ischemia. Interpreted by me. Reviewed by me. Administered Medications: 13:47 Drug: NS 0.9% IV 500 ml 500 ml IV at 1 bolus once; to be given as a bolus over 30 hb minutes Volume: 500 ml; Route: IV; Rate: 1 bolus; Site: right antecubital; 17:10 Follow up: Response: No adverse reaction; IV Status: Completed infusion; IV Intake: db 500ml 14:00 Drug: NS 0.9% IV 500 ml 500 ml IV at 100 ml/hr once Volume: 500 ml; Route: IV; Rate: db 100 ml/hr; Site: right antecubital; 17:10 Follow up: Response: No adverse reaction; IV Status: Completed infusion db 14:00 Drug: foLIC Acid IVPB 1 mg IVPB once Route: IVPB; Site: right antecubital; db 17:10 Follow up: Response: No adverse reaction; IV Status: Completed infusion db 14:00 Drug: Famotidine IVP 20 mg IVP once; dilute with 10 mL 0.9% NaCl; give over 2 minutes db Route: IVP; Site: right antecubital; 17:10 Follow up: Response: No adverse reaction db Disposition Summary: 08/10/24 16:10 Discharge Ordered Notes: Location: Home blank Problem: new blank Symptoms: have improved blank Condition: Fair blank Diagnosis - Alzheimer's disease, unspecified blank - Dementia in other diseases classified elsewhere without behavioral disturbance blank Followup: blank - With: Abdirashid Kaiser MD - When: 2 - 3 days - Reason: Recheck today's complaints, Re-evaluation by your physician Followup: blank - With: Jose Alejandro Lew MD - When: 2 - 3 days - Reason: Recheck today's complaints, Re-evaluation by your physician Discharge Instructions: - Discharge Summary Sheet blank - Dementia blank - Vascular Dementia blank - Aspirin and Your Heart blank - Dementia, [id number] blank - Dementia Caregiver Guide blank - Alzheimer's Disease blank Forms: - Medication Reconciliation Form blank - Antibiotic Education blank - Prescription Opioid Use blank - Patient Portal Instructions blank - Leadership Thank You Letter blank Prescriptions: - Folic Acid 1 mg Oral Tablet - take 1 tablet ORAL route once daily; 30 tablet; Refills: 0, Product Selection blank Permitted NIH Stroke Scale - NIH Stroke Score Date: 08/10/2024 Time: 16:00 Total Score = 0 10. Dysarthria (speech clarity - read or repeat words) - 0(Normal) 11. Extinction and Inattention (visual/tactile/auditory/spatial/personal) - 0(No abnormality) 1a. Level of Consciousness (LOC) - 0(Alert) 1b. Level of Consciousness (LOC) (Month \T\ Age) - 0(Both) 1c. LOC Commands (Open \T\ Closes Eyes/Pipe Processor) - 0(Both) 2. Best Gaze (Lateral Gaze Paresis) - 0(Normal) 3. Visual Field Loss - 0(No visual loss) 4. Facial Palsy - 0(Normal) 5a. Left Arm: Motor (10-second hold) - 0(No drift) 5b. Right Arm: Motor (10-second hold) - 0(No drift) 6a. Left Leg: Motor (5-second hold - always test supine) - 0(No drift) 6b. Right Leg: Motor (5-second hold - always test supine) - 0(No drift) 7. Limb Ataxia (finger/nose \T\ heel/gatica - test with eyes open) - 0(Absent) 8. Sensory Loss (pinprick arms/legs/face) - 0(Normal) 9. Best Language: Aphasia (description/naming/reading) - 0(No aphasia) Initials: blank Signatures: Dispatcher [employer] EDMS Adam Ferguson MD MD cha Baxter, Heather, RN RN Chantale Peterson RN RN db Corrections: (The following items were deleted from the chart) 12:44 12:44 BASIC METABOLIC PANEL+C.LAB.BRZ ordered. EDMS EDMS 12:44 12:44 CBC+H.LAB.BRZ ordered. EDMS EDMS 12:44 12:44 HEPATIC FUNCTION+C.LAB.BRZ ordered. EDMS EDMS 12:44 12:44 MAGNESIUM+C.LAB.BRZ ordered. EDMS EDMS 12:44 12:44 PROBNP+C.LAB.BRZ ordered. EDMS EDMS 12:44 12:44 PROTIME (+INR)+COAG.LAB.BRZ ordered. EDMS EDMS 12:44 12:44 Troponin High Sensitivity+C.LAB.BRZ ordered. EDMS EDMS 12:44 12:44 Urinalysis+U.LAB.BRZ ordered. EDMS EDMS 12:44 12:44 LIPASE+C.LAB.BRZ ordered. EDMS EDMS 12:44 12:44 Chest Single View+RAD.RAD.BRZ ordered. EDMS EDMS 12:44 12:44 Shuntogram+RAD.RAD.BRZ ordered. EDMS EDMS 12:44 Head Brain Wo Cont+CT.RAD.BRZ ordered. EDMS EDMS
[2024-08-10 16:48] LABS: Specific Gravity 1.022 (1.005-1.030); Sqamous Epithelial <5 /HPF (None Seen); Urine Bacteria None Seen /HPF (<20); Urine Bilirubin NEGATIVE (Negative); Urine Blood Trace (Negative); Urine Clarity Clear (Clear); Urine Color Light-Yellow (Yellow); Urine Culture Reflex Order NOT NEEDED; Urine Glucose NEGATIVE (Negative); Urine Ketones 1+ (Negative); Urine Microscopic Reflex YN ORDER UMIC; Urine Mucus 1+ /HPF (None Seen); Urine Nitrite NEGATIVE (Negative); Urine Protein NEGATIVE (Negative); Urine Urobilinogen Normal (Normal); Urine WBC <5 /HPF (<5)
[2024-08-11 06:49] VITALS: TEMP 98.1
[2024-08-11 06:51] VITALS: O2SAT 100
[2024-08-11 06:55] VITALS: BP 162/78
--- NOTE | 2024-08-13 12:10 | EKG ---
Test Date: 2024-08-10 Test Time: 12:53:39 Music Assistant: TRACY MEASUREMENT RESULTS: Intervals: Rate: 57 LA: 122 QRSD: 102 QT: 438 QTc: 426 [place]: P: 78 LA: 122 QRS: 78 T: 76 INTERPRETIVE STATEMENTS: Sinus bradycardia Left ventricular hypertrophy with repolarization abnormality Abnormal ECG Compared to ECG 07/22/2024 21:06:01 Sinus rhythm no longer present Electronically Signed On 08-13-24 12:10:07 LEAD ATHLETE by Gilmer Dean
== END 2024-08-10 17:09 | disposition home or self-care (01) ==
LOC: ER 12:06
DX: G30.9 Alzheimer's disease, unspecified (principal); F02.80 Dementia in other diseases classified elsewhere, unspecified severity, without behavioral disturbance, psychotic disturbance, mood disturbance, and anxiety; R53.1 Weakness
CPT/HCPCS: 96365; 85025; 81001; 80048; 36415; 83735; 85610; 80076; 84484; 83690; 83880; 70450; 71045; 96375; 99285; 96366; J7030; 93005